=== PATIENT | male | born 2000 | race Caucasian/White ===

== ENCOUNTER 2019-01-24 12:01 | Emergency (ER) | payer MEDICAID, SELFPAY ==
[2019-01-24 12:34] VITALS: BP 133/77; PULSE 85; RESP 16; TEMP 36.8; O2SAT 94
[2019-01-24 12:43] VITALS: RESP 18
[2019-01-24 13:00] LABS: Bilirubin Negative (Negative); Blood Negative (Negative); Clarity Clear (Clear); Glucose Negative (Negative); Ketones Negative (Negative); Leukocyte Esterase Negative (Negative); Nitrite Negative (Negative); Specific Gravity 1.015 (1.005-1.025); Urobilinogen 0.2 EU/dL (Up TO 0.2)
--- NOTE | 2019-01-24 13:05 | DI.RAD_ITS ---
EXAM: XR LUMBAR SPINE COMPLETE INDICATION: R paraspinal L-spine pain after chiropractic manipulation. COMPARISON: No exams were available for comparison TECHNIQUE: 2D digital imaging was performed. FINDINGS: Five views lumbar spine were obtained. There is mild disc space narrowing at L5-S1. Intervertebral disc spaces otherwise appear well maintained. No other abnormality seen with unremarkable appearance of the bones throughout. There is contrast material in the renal collecting systems, ureters and ur inary bladder following contrast administration for CTA. The visualized urinary tract structures appe ar normal. IMPRESSION: L5-S1 disc space loss of height consistent with disc degeneration. No evidence of fracture.
--- NOTE | 2019-01-24 13:05 | DI.CT_ITS ---
EXAM: CT BRAIN AND NECK CTA CLINICAL HISTORY: Neck pain, headache after chiropractor C-spine manip. TECHNIQUE: Axial CT angiography was performed with multislice acquisition and multiplanar and/or 3D reconstructions. CT examination of the neck and brain was performed utilizing CTA protocol with intravenous infusion o f 85 cc of Omnipaque 350. COMPARISON: ABD AND PELVIS WITH CONTRAST from 08/02/2017 FINDINGS: Images obtained through the lung apices are unremarkable. Visualized aortic arch appears intact. Th e common, internal and external carotid arteries are normal bilaterally with no evidence of aneurysm, dissection or stenosis. The vertebral arteries are unremarkable bilaterally as is the basilar arter y with no evidence of aneurysm, dissection or stenosis. Intracranial portions of internal carotid ar teries appear normal as do the anterior middle and posterior cerebral arteries and major branches. N o intracranial mass lesion or enhancing lesion. Orbital and temporal bone structures appear intact. Paranasal sinuses and mastoid air cells are well maintained. No cervical mass or adenopathy seen. No bony fracture identified. IMPRESSION: Negative CT angiogram, neck and head
--- NOTE | 2019-01-24 13:11 | ED.GENADUL_ITS ---
Discharge Plan Disposition Patient Disposition: HOME Condition: Good Discharge Details Chief Complaint: SOB Clinical Impression: Back pain Primary Care Provider: Иван Bosch ED Provider: Harry Humphreys Home Meds and New Rx's Prescriptions: New acetaminophen [Mapap Extra Strength] 500 MG tablet 1,000 mg PO Q6H 5 Days Qty: 60 RF: 0 lidocaine [Lidoderm] 1 PATCH patch 1 patch Topical Q24H Qty: 4 RF: 0 ibuprofen [Motrin IB] 200 MG tablet 600 mg PO Q6H 5 Days Qty: 60 RF: 0 Continued albuterol sulfate [Proventil HFA] 90 mcg/actuation HFA aerosol inhaler 2 puff Inhalation Q4H PRN Qty: 1 RF: 11 omeprazole 20 mg capsule,delayed release(DR/EC) 20 mg PO DAILY Qty: 90 RF: 3 loratadine 10 mg tablet 10 mg PO DAILY PRN (Reason: allergy symptoms) Qty: 90 RF: 5 Discontinued ibuprofen 800 MG tablet 800 mg PO Q8H PRN Qty: 90 RF: 1 Discharge Instructions Instructions: Back Pain (ED) Additional Instructions: You have a strain for your back. At this time the x-rays are negative for any fracture, and the CT scan per our radiologist shows no signs of dissection. Please use Lidoderm patch as directed, take Tylenol and Motrin as needed for pain. If you notice any worsening of your symptoms, or any new symptoms such as vomiting, diarrhea, fever, chills, shortness of breath, chest pain, numbness, numbness or tingling in your groin, bowel or bladder incontinence, weakness, or fainting , please return immediately to the emergency department for reevaluation. Please avoid any lifting greater than 5 to 10 pounds. Use a heating pad as often as possible on your back. Please follow up with your primary care provider as soon as possible for reassessment and reevaluation. As always, it was a pleasure participating in your medical care today. Referrals: Иван Bosch [Primary Care Provider] - Discharge Data Discharge Date/Time-TO BE ENTERED AT DEPARTURE: 01/24/19 15:15 Medical Decision Making This is a pleasant 18-year-old male with no significant past medical history who presents today for evaluation of lower back pain and mild headache. Patient states that he has been doing a lot of heavy lifting at his work secondary to requirements up the arm. This is caused some mild right-sided paraspinal lumbar pain. He did go to see a chiropractor who did some adjustments on his back also his neck. Since then the patient has had mild headache, conjunction with his continued back pain. He has no concerning red flags of saddle anesthesia, bowel or bladder incontinence, syncope. Of pertinence he did have a second-degree relative who just recently also went to the chiropractor and unfortunately in a similar timeframe developed a carotid or vertebral artery dissection. Physical exam today demonstrates mild right-sided paraspinal tenderness and spasm. No carotid or vertebral artery bruits. No concerning physical exam findings suggestive of cauda equina syndrome. No focal neurologic deficits of the cervical spine, no intracranial neurologic focal deficits. Signs and symptoms certainly appear relatively benign, no clinical evidence of meningitis. I feel the patient's headache is likely secondary to mild tension headache. However because of the recent family history and family' s current concern we will get a CTA of the head neck, as well as plain films of the lumbar spine. No clinical evidence of aortic dissection or aneurysm, pulses are equal and symmetric lower extremities bilaterally. 5 PM Laboratory work-up is returned benign, no significant abnormalities are noted, urinalysis is negative for any evidence of infection or hematuria. EKG unremarkable. CT scan of the head neck as well as lumbar spine demonstrates no evidence of acute process, dissection, aneurysm or bleed. After Lidoderm patch Solu-Medrol and NSAID therapy the patient is feeling much better. He states that he feels ready to go home. This time I feel the patient signs and symptoms are clinically consistent with a mild muscular stiff skeletal strain muscle spasms. Recommend continued heating pad, NSAID therapy and Lidoderm patch. Discussed red flags for which to return. I have extensively reviewed the treatment plan and discharge instructions with the patient and their family. I have addressed all patient concerns at this time. The patient and family was made aware of what symptoms to monitor for that would warrant a return to the emergency department. Discussed the plan with the patient and family, they demonstrate verbal understanding and agreement with our assessment and plan at this time. EKG 12: 45 Rate 72, intervals normal, sinus rhythm, no significant ST elevations or depressions, small less than 1 mm J-point elevation in V2, no Q waves, no evidence of STEMI, Brugada, Wellens, or WPW. Or hokum FINDINGS: Images obtained through the lung apices are unremarkable. Visualized aortic arch appears intact. The common, internal and external carotid arteries are normal bilaterally with no evidence of aneurysm, dissection or stenosis. The vertebral arteries are unremarkable bilaterally as is the basilar artery with no evidence of aneurysm, dissection or stenosis. Intracranial portions of internal carotid arteries appear normal as do the anterior middle and posterior cerebral arteries and major branches. No intracranial mass lesion or enhancing lesion. Orbital and temporal bone structures appear intact. Paranasal sinuses and mastoid air cells are well maintained. No cervical mass or adenopathy seen. No bony fracture identified. IMPRESSION: Negative CT angiogram, neck and head FINDINGS: Five views lumbar spine were obtained. There is mild disc space narrowing at L5-S1. Intervertebral disc spaces otherwise appear well maintained. No other abnormality seen with unremarkable appearance of the bones throughout. There is contrast material in the renal collecting systems, ureters and urinary bladder following contrast administration for CTA. The visualized urinary tract structures appear normal. IMPRESSION: L5-S1 disc space loss of height consistent with disc degeneration. No evidence of fracture. Ordered By: Harry Humphreys DO [facility] General Date/Time Provider Initiated Documentation: 01/24/19 12:31 . [facility] Narrative: This is a 18-year-old male who presents today for evaluation of mild headache and back pain. 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 48 hours ago he noticed some mild back spasms on his right lower back. His symptoms are made worse by lifting and working. He denied any associated urinary complaints. He denies any frequency or hematuria. He denies any saddle anesthesia, numbness tingling weakness. He went to see a chiropractor and had an adjustment on his back and his neck. Since then he has had a mild headache, mild neck pain, and continued mild back pain. He denies any additional symptoms of vision changes, syncope, or other complaints. He denies any fever chills or IV or illicit drug use. He denies any trauma. Of pertinence the patient did have a second-degree family member also went to the same chiropractor 2 weeks ago who unfortunately had a Carotid or vertebral artery dissection. Currently the patient is concerned about this. Patient denies any other complaints at this time. No other modifying factors. Related Data Home Medications Medication Instructions Recorded Confirmed albuterol sulfate 90 mcg/actuation 2 puff INHALATION Q4H PRN #1 03/01/18 01/24/19 aerosol inhaler inhaler loratadine 10 mg tablet 10 mg PO DAILY PRN #90 tab 09/27/18 01/24/19 omeprazole 20 mg capsule,delayed 20 mg PO DAILY #90 tab-cap 19 01/24/19 release acetaminophen [Mapap Extra 1,000 mg PO Q6H 5 Days #60 tab 01/24/19 Strength] ibuprofen [Motrin Ib] 600 mg PO Q6H 5 Days #60 tab 01/24/19 lidocaine [Lidoderm] 1 patch TOPICAL Q24H #4 patch 01/24/19 Previous Rx's Medication Instructions Recorded albuterol sulfate 90 mcg/actuation 2 puff INHALATION Q4H PRN #1 03/01/18 aerosol inhaler inhaler loratadine 10 mg tablet 10 mg PO DAILY PRN #90 tab 09/27/18 omeprazole 20 mg capsule,delayed 20 mg PO DAILY #90 tab-cap 09/27/18 release acetaminophen [Mapap Extra 1,000 mg PO Q6H 5 Days #60 tab 01/24/19 Strength] ibuprofen [Motrin Ib] 600 mg PO Q6H 5 Days #60 tab 01/24/19 lidocaine [Lidoderm] 1 patch TOPICAL Q24H #4 patch 01/24/19 Allergies Allergy/AdvReac Type Severity Reaction Status Date / Time cetirizine HCl [From [facility]] Allergy Unverified 01/24/19 12:38 salt and vinegar chips Allergy Intermediate rash/hives Uncoded 01/24/19 12:38 General Stated Complaint: SOB HEATHER: 3 Review of Systems Review of Systems ROS Unobtainable: All systems reviewed & are unremarkable except as noted in HPI and below PFSH Medical History (Updated 03/01/18 @ 09:20 by Иван Bosch) Acne asthma Environmental allergies Learning problem Surgical History Circumcision Family History Mother Essential hypertension Hyperlipidemia Spina bifida occulta Asthma Father Asthma Maternal Grandfather , AGE 56 No problems noted. 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 3.ENT: Atraumatic external nose and ears. Moist MM. Neck: Symmetric, trachea midline, No thyromegaly. No carotid or vertebral artery bruits. Patient demonstrates good movement of cervical neck. There is no nuchal rigidity, no nuchal tenderness. Patient is able to flex the neck without any difficulty or significant pain. Negative Kernig's and Brudzinski sign. 4.CVS: +S1/S2, No murmurs or gallops. Peripheral pulses 2+ and equal in all extremities. Brisk capillary refill in all extremities. 5.RESP: Unlabored respiratory effort. Clear to auscultation bilaterally. No wheezes rales or rhonchi 6.GI: Soft, Nontender/Nondistended, No hepatosplenomegaly. No guarding or rebound. 7.MSK: Normocephalic/Atraumatic, Extremities w/o deformity or ttp No cyanosis or clubbing, Normal movement of all extremities no midline tenderness to palpation over the CTS spine. Minimal right-sided paraspinal tenderness over the lower lumbar vertebra. Mild right-sided paraspinal muscle spasm. Normal ROM in flexion, extension, side bend, and rotation. Patient has +5 out of 5 strength in the lower extremities in dorsiflexion and plantarflexion, knee flexion and extension, hip flexion and extension. There is +2 over 2 dorsalis pedis pulses bilaterally. There is normal sensation to the skin with light touch at the foot, knee, and hip. Normal saddle sensation. Good sensation over the deep sural nerve area bilaterally. Rectal exam demonstrates normal rectal tone and sensation. Reflexes are +2 over 4 in the patellar reflex bilaterally. +5 out of 5 strength in the medial, ulnar, radial nerve distribution bilaterally in the hands as well as intact light touch sensation to these dermatomes on the hands 8.Skin: Warm, Dry. No rashes or lesions. 9.Neuro: pathology laboratory technologist II-XII grossly intact. Sensation grossly intact, no focal neurologic deficits. All 6 cardinal planes of vision are fully intact. No evidence of rotatory or vertical nystagmus. The patient demonstrated a normal [id number], good dexterity. There was no evidence of dysdiadochokinesia. Patient was able to ambulate without difficulty. There was no wide-based gait. Romberg, and [id number] are both normal on testing. Sensation was intact bilaterally as well as muscle strength bilaterally for all extremities. Patient was able to verbalize butter cup with no slurring, or miss pronunciation. 10.Psych: (AAO) x3. Appropriate mood and affect Course Vital Signs Vital signs: Vital Signs Temperature 36.8 C 01/24/19 12:34 Pulse 85 01/24/19 12:34 Respiratory Rate 16 01/24/19 12:34 Blood Pressure 133/77 01/24/19 12:34 Pulse Oximetry 94 L 01/24/19 12:34 Temperature 36.8 C 01/24/19 12:34 Temperature Source Temporal Artery Scan 01/24/19 12:34 Pulse 85 01/24/19 12:34 Respiratory Rate 18 01/24/19 12:43 Respiratory Effort 01/24/19 12:43 Respiratory Depth Normal 01/24/19 12:43 Blood Pressure 133/77 01/24/19 12:34 Blood Pressure Position Sitting 01/24/19 12:34 Pulse Oximetry 94 L 01/24/19 12:34 Oxygen Delivery Method Room Air 01/24/19 12:34 Oxygen Flow Rate 0 01/24/19 12:34 Pain Level 0 01/24/19 12:34 Lab/Test Results Lab/Test Results: Laboratory Tests Range/Units 01/24/19 12:40 Urine Color (Yellow) Yellow Urine Clarity (Clear) Clear Urine pH (5-8) 6.0 Ur Specific [place] (1.005-1.025) 1.015 Urine Protein (Negative) mg/dL Negative Urine Ketones (Negative) mg/dL Negative Urine Blood (Negative) Negative Urine Nitrite (Negative) Negative Urine Bilirubin (Negative) Negative Urine Urobilinogen (Up TO 0.2) EU/dL 0.2 Ur Leukocyte Esterase (Negative) Negative Urine Glucose (Negative) mg/dL Negative
[2019-01-24 13:24] LABS: HGB 17.1 g/dL (13.5-17.5); Mean Corp. HGB Concentration 34.9 g/dL (32.0-36.0); Mean Corpuscular Hemoglobin 29.5 pg (27.0-33.0); Mean Corpuscular Volume 84.6 fL (80-95); Mean Platelet Volume 12.1 fL (8.0-11.0); RBC 5.79 m/cumm (4.50-6.00); RBC Distribution Width 12.7 % (11.8-14.1)
[2019-01-24 13:31] LABS: ALT 38 U/L (16-63); AST 21 U/L (15-37); Albumin 3.9 g/dL (3.4-5.0); Alkaline Phosphatase 84 U/L (46-116); Anion Gap 9.1 mmol/L (3-11); BUN 11 mg/dL (7-18); Bilirubin, Total 0.5 mg/dL (0.2-1.0); CO2 27.9 mmol/L (21.0-32.0); CREATININE 1.03 mg/dL (0.70-1.30); Calcium 8.6 mg/dL (8.5-10.1); Chloride 103 mmol/L (98-107); Glucose 100 mg/dL (70-100); Potassium 3.7 mmol/L (3.5-5.1); Sodium 140 mmol/L (136-145); Total Protein 7.3 g/dL (6.4-8.2)
[2019-01-24 13:36] LABS: Absolute Lymphocyte Count 0.72 k/cumm (1.2-3.4); Absolute Monocyte Count 0.66 k/cumm (0.11-0.7); Absolute Neutrophil Count 4.13 k/cumm (1.2-6.7); Atypical Lymphocytes % 1; Diff Comment Manual Differential; Platelet Count 157 x1000/uL (130-400); RBC Morphology Normal
[2019-01-24 13:37] LABS: PTT Activated 24.8 sec (21.0-31.4); Prothrombin Time 10.4 sec (9.3-11.0)
[2019-01-24] MEDS: Omnipaque 350 MG/ML 100 ML BTL IJ (13:37)
[2019-01-24] MEDS: methylPREDNISolone SUCC 125 MG VIAL IVP (14:03)
[2019-01-24] MEDS: Lidocaine 5% Patch 1 PATCH TP (14:03)
[2019-01-24] MEDS: Acetaminophen 500 MG TAB 1000 MG PO (14:03)
[2019-01-24 14:23] VITALS: BP 122/87; PULSE 70; RESP 16; TEMP 37; O2SAT 96
== END 2019-01-24 15:15 | disposition home or self-care (01) ==
PROVIDERS: Emergency Provider Student in an Organized Health Care Education/Training Program; PCP Family Medicine
DX: S39.012A Strain of muscle, fascia and tendon of lower back, initial encounter (principal); X50.0XXA Overexertion from strenuous movement or load, initial encounter; Y99.0 Civilian activity done for income or pay; M54.2 Cervicalgia; R51 Headache
CPT/HCPCS: 36415; 36416; 70496; 70498; 80053; 82962; 93005; 96374; 99285; 72110; 81003; 85025; 85610; 85730; 93010; J2930; J3490

== ENCOUNTER 2019-01-26 11:55 | Emergency (ER) | payer MEDICAID, SELFPAY ==
[2019-01-26 12:13] VITALS: BP 126/84; PULSE 110; RESP 16; TEMP 36.4; O2SAT 95
--- NOTE | 2019-01-26 12:45 | DI.CT_ITS ---
EXAM: CT LUMBAR SPINE WO CLINICAL HISTORY: Recent injury, pulled back, midtend @L3-4. TECHNIQUE: CT was performed according to the usual protocol without contrast. COMPARISON: No exams were available for comparison FINDINGS: The lumbar vertebra appear normal. The disc spaces are intact. The posterior elements well-maintained . The facet joints are intact. IMPRESSION: No evidence of a fracture or subluxation.
[2019-01-26 12:46] LABS: Abs Immature Grans 0.02 k/cumm (0.0-0.09); Absolute Basophil Count 0.02 k/cumm (0.0-0.2); Absolute Eosinophil Count 0.12 k/cumm (0.0-0.7); Absolute Lymphocyte Count 2.23 k/cumm (1.2-3.4); Absolute Monocyte Count 0.53 k/cumm (0.11-0.7); Absolute Neutrophil Count 4.88 k/cumm (1.2-6.7); Basophils % 0.3; Eosinophils % 1.5; HCT 47.6 % (40.0-50.0); HGB 16.8 g/dL (13.5-17.5); Immature Grans % 0.3; Lymphocytes % 28.6; Mean Corp. HGB Concentration 35.3 g/dL (32.0-36.0); Mean Corpuscular Hemoglobin 29.9 pg (27.0-33.0); Mean Corpuscular Volume 84.8 fL (80-95); Mean Platelet Volume 10.8 fL (8.0-11.0); Monocytes % 6.8; Neutrophils % 62.5; Platelet Count 164 x1000/uL (130-400); RBC 5.61 m/cumm (4.50-6.00); RBC Distribution Width 12.6 % (11.8-14.1)
[2019-01-26] MEDS: ACETAMINOPHEN 1,000 MG/100 ML BTL 400 MG IVPB (12:51)
[2019-01-26] MEDS: diphenhydrAMINE 50 MG/ML VIAL 25 MG IVP (12:52)
[2019-01-26] MEDS: Prochlorperazine 10 MG/2 ML VIAL IVP (12:53)
[2019-01-26] MEDS: Ketorolac 30 MG/ML VIAL IVP (12:53)
[2019-01-26 13:05] LABS: ALT 38 U/L (16-63); AST 16 U/L (15-37); Albumin 3.7 g/dL (3.4-5.0); Alkaline Phosphatase 74 U/L (46-116); Anion Gap 7.9 mmol/L (3-11); BUN 20 mg/dL (7-18); Bilirubin, Total 0.3 mg/dL (0.2-1.0); CO2 29.1 mmol/L (21.0-32.0); CREATININE 1.14 mg/dL (0.70-1.30); Calcium 8.6 mg/dL (8.5-10.1); Chloride 104 mmol/L (98-107); Glucose 99 mg/dL (70-100); Potassium 3.8 mmol/L (3.5-5.1); Sodium 141 mmol/L (136-145)
[2019-01-26 13:18] LABS: ESR 5 mm/hr (0-15)
[2019-01-26 13:52] LABS: C-Reactive Protein 0.06 mg/dL (0.0-0.3)
--- NOTE | 2019-01-26 14:17 | ED.GENADUL_ITS ---
Discharge Plan Disposition Patient Disposition: HOME Condition: Good Discharge Details Chief Complaint: Nk/Back Pain Clinical Impression: Headache, Lumbago Primary Care Provider: Иван Bosch ED Provider: Harry Humphreys Home Meds and New Rx's Prescriptions: No Action albuterol sulfate [Proventil HFA] 90 mcg/actuation HFA aerosol inhaler 2 puff Inhalation Q4H PRN Qty: 1 RF: 11 omeprazole 20 mg capsule,delayed release(DR/EC) 20 mg PO DAILY Qty: 90 RF: 3 loratadine 10 mg tablet 10 mg PO DAILY PRN (Reason: allergy symptoms) Qty: 90 RF: 5 acetaminophen [Mapap Extra Strength] 500 MG tablet 1,000 mg PO Q6H 5 Days Qty: 60 RF: 0 lidocaine [Lidoderm] 1 PATCH patch 1 patch Topical Q24H Qty: 4 RF: 0 ibuprofen [Motrin IB] 200 MG tablet 600 mg PO Q6H 5 Days Qty: 60 RF: 0 Discharge Instructions Instructions: Low Back Strain (ED), General Headache (ED) Additional Instructions: Please continue to use the Tylenol Motrin and Lidoderm patches. Please drink plenty of fluids and get plenty of sleep. If you notice any worsening of your symptoms, or any new symptoms such as vomiting, diarrhea, fever, chills, shortness of breath, chest pain, numbness, weakness, or fainting , please return immediately to the emergency department for reevaluation. Please follow up with your primary care provider as soon as possible for reassessment and reevaluation. As always, it was a pleasure participating in your medical care today. Referrals: Иван Bosch [Primary Care Provider] - Discharge Data Discharge Date/Time-TO BE ENTERED AT DEPARTURE: 01/26/19 14:29 Medical Decision Making This is a pleasant 18-year-old male with a past medical history of mild degenerative disc disease, as well as chronic migraines who presents today for evaluation of mild headache back pain. He was seen and assessed less than 48 hours ago after having adjustments from a chiropractor leading to mild neck pain and headache, as well as some mild back pain that he had from lifting some heavy objects previously. Imaging at that time was negative including CT angios of the head and neck and x-rays of the lumbar spine aside from mild disc degeneration. No clinical evidence of cauda equina syndrome or cord compression at that time. No evidence of meningeal signs at that time. Since then the i nitial headache that he had resolved and then this 1 started roughly 24 hours afterwards. He denies any concerning red flags of fever, vision changes, neck stiffness. He denies any new trauma. He states that the back pain is not entirely improved. Repeat exam demonstrates no clinical evidence of meningitis, no evidence of cord compression. I had a long discussion with the patient regarding lumbar tap, repeat imaging, and risks and benefits of radiation. At this time family would like further imaging to be done, we will get a CT scan of the lumbar spine. Will get basic labs, give migraine cocktail for the headache, as well as ESR and CRP. Currently the patient shows no clinical evidence of an intracranial aneurysm or bleed clinically with no neck stiffness, nuchal rigidity, and with a negative CT angiogram and CT head just 48 hours ago. Additionaly, the patient would like to hold off on lumbar puncture. I did discuss the risks and benefits of this, including missing a life-threatening or permanently disabling etiology and the patient understands. Clinically he shows no signs of Clinical meningitis as it is. Additionally bedside post void residual showed no evidence of urinary retention. CT scan of the lumbar spine negative aside from mild degenerative disc disease, headache resolved, ESR and CRP benign, no clinical evidence of meningitis, feeling much better, headache completely resolved, physical exam normal. Patient is feeling very well and is requesting to be discharged home. Neuro exam normal, no evidence of cord compression, no evidence of neurovascular compromise, discharge home, close follow-up. Diagnosis chronic headache/migraine, as well as musculoskeletal lumbar strain.I have extensively reviewed the treatment plan and discharge instructions with the patient and their family. I have addressed all patient concerns at this time. The patient and family was made aware of what symptoms to monitor for that would warrant a return to the emergency department. Discussed the plan with the patient and family, they demonstrate verbal understanding and agreement with our assessment and plan at this time. EXAM: CT LUMBAR SPINE WO CLINICAL HISTORY: Recent injury, pulled back, midtend @L3-4. TECHNIQUE: CT was performed according to the usual protocol without contrast. COMPARISON: No exams were available for comparison FINDINGS: The lumbar vertebra appear normal. The disc spaces are intact. The posterior elements well-maintained. The facet joints are intact. IMPRESSION: No evidence of a fracture or subluxation HPI General Date/Time Provider Initiated Documentation: 01/26/19 11:56 . HPI Narrative: This is a 18-year-old male with a past medical history of chronic migraines and headaches, who was recently seen and evaluated within the last 48 hours for evaluation of neck and back pain. At that time he had mild back strain after lifting some heavy objects at work, went to the chiropractor who adjusted his back and his neck, after that the patient had neck pain and headache. CT angiogram of the head and neck was negative for acute process dissection or aneurysm. Lumbar x-rays were benign aside for mild disc degeneration. He was given NSAIDs, Lidoderm patch, and discharged home. Patient presents again today for continued mild back pain, no new changes in regards to that, no saddle anesthesia bowel or bladder incontinence, numbness tingling or weakness. However he states that the pain is not much better with the current treatments. Additionally the patient does admit to mild headache as well now. It is in the right temp oral and frontal region. He denies any neck pain or stiffness. He denies any fevers. He states that the initial headache he had when he was first assessed 2 days ago was completely resolved, and then this 1 started about 24 hours ago. It is improved with NSAIDs. The patient denies any headache red flags of worst headache of life, thunderclap headache, neck pain, fever, concerning family history of polycystic kidney disease, Marfan syndrome, Ahsan-Danlos syndrome, abdominal aortic aneurysm, aortic dissection, or intracranial aneurysm. Patient states that headache is identical in nature to the headaches that he usually gets. He has no other complaints at this time. Related Data Home Medications Medication Instructions Recorded Confirmed albuterol sulfate 90 mcg/actuation 2 puff INHALATION Q4H PRN #1 03/01/18 01/26/19 aerosol inhaler inhaler loratadine 10 mg tablet 10 mg PO DAILY PRN #90 tab 09/27/18 01/26/19 omeprazole 20 mg capsule,delayed 20 mg PO DAILY #90 tab-cap 09/27/18 01/26/19 release acetaminophen [Mapap Extra 1,000 mg PO Q6H 5 Days #60 tab 01/24/19 01/26/19 Strength] ibuprofen [Motrin Ib] 600 mg PO Q6H 5 Days #60 tab 01/24/19 01/26/19 lidocaine [Lidoderm] 1 patch TOPICAL Q24H #4 patch 01/24/19 01/26/19 Previous Rx's Medication Instructions Recorded albuterol sulfate 90 mcg/actuation 2 puff INHALATION Q4H PRN #1 03/01/18 aerosol inhaler inhaler loratadine 10 mg tablet 10 mg PO DAILY PRN #90 tab 09/27/18 omeprazole 20 mg capsule,delayed 20 mg PO DAILY #90 tab-cap 09/27/18 release acetaminophen [Mapap Extra 1,000 mg PO Q6H 5 Days #60 tab 01/24/19 Strength] ibuprofen [Motrin Ib] 600 mg PO Q6H 5 Days #60 tab 01/24/19 lidocaine [Lidoderm] 1 patch TOPICAL Q24H #4 patch 01/24/19 Allergies Allergy/AdvReac Type Severity Reaction Status Date / Time cetirizine HCl [From [facility]] Allergy Unverified 01/24/19 12:38 salt and vinegar chips Allergy Intermediate rash/hives Uncoded 01/24/19 12:38 General Stated Complaint: Nk/Back Pain HEATHER: 3 Review of Systems Review of Systems ROS Unobtainable: All systems reviewed & are unremarkable except as noted in HPI and below PFSH Medical History (Updated 03/01/18 @ 09:20 by Иван Bosch) Acne asthma Environmental allergies Learning problem Surgical History Circumcision Family History Mother Essential hypertension Hyperlipidemia Spina bifida occulta Asthma Father Asthma Maternal Grandfather , AGE 56 No problems noted. 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 3.ENT: Atraumatic external nose and ears. Moist MM. Neck: Symmetric, trachea midline, No thyromegaly. Patient demonstrates good movement of cervical neck. There is no nuchal rigidity, no nuchal tenderness. Patient is able to flex the neck without any difficulty or significant pain. Negative Kernig's and Brudzinski sign. 4.CVS: +S1/S2, No murmurs or gallops. Peripheral pulses 2+ and equal in all e xtremities. Brisk capillary refill in all extremities. 5.RESP: Unlabored respiratory effort. Clear to auscultation bilaterally. No wheezes rales or rhonchi 6.GI: Soft, Nontender/Nondistended, No hepatosplenomegaly. No guarding or rebound. 7.MSK: Normocephalic/Atraumatic, Extremities w/o deformity or ttp No cyanosis or clubbing, Normal movement of all extremities. No midline tenderness to palpation over the CTLS spine. Mild right-sided lumbar paraspinal tenderness. Normal ROM in flexion, extension, side bend, and rotation. Patient has +5 out of 5 strength in the lower extremities in dorsiflexion and plantarflexion, knee flexion and extension, hip flexion and extension. There is +2 over 2 dorsalis pedis pulses bilaterally. There is normal sensation to the skin with light touch at the foot, knee, and hip. Normal saddle sensation. Good sensation over the deep sural nerve area bilaterally. Rectal exam deferred. Reflexes are +2 over 4 in the patellar reflex bilaterally. +5 out of 5 strength in the medial, ulnar, radial nerve distribution bilaterally in the hands as well as intact light touch sensation to these dermatomes on the hands 8.Skin: Warm, Dry. No rashes or lesions. 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 Sensation grossly intact, no focal neurologic deficits. All 6 cardinal planes of vision are fully intact. No evidence of rotatory or vertical nystagmus. The patient demonstrated a normal [id number], good dexterity. There was no evidence of dysdiadochokinesia. Patient was able to ambulate without difficulty. There was no wide-based gait. Romberg, and yowj-[id number] are both normal on testing. Sensation was intact bilaterally as well as muscle strength bilaterally for all extremities. Patient was able to verbalize butter cup with no slurring, or miss pronunciation. 10.Psych: (AAO) x3. Appropriate mood and affect Course Vital Signs Vital signs: Vital Signs Temperature 36.4 C L 01/26/19 12:13 Pulse 110 H 01/26/19 12:13 Respiratory Rate 16 01/26/19 12:13 Blood Pressure 126/84 01/26/19 12:13 Pulse Oximetry 95 01/26/19 12:13 Temperature 36.4 C L 01/26/19 12:13 Temperature Source Skin 01/26/19 12:13 Pulse 110 H 01/26/19 12:13 Respiratory Rate 16 01/26/19 12:13 Respiratory Effort Non-Labored 01/26/19 12:29 Blood Pressure 126/84 01/26/19 12:13 Blood Pressure Position Sitting 01/26/19 12:13 Pulse Oximetry 95 01/26/19 12:13 Oxygen Delivery Method Room Air 01/26/19 12:13 Oxygen Flow Rate 0 01/26/19 12:13 Pain Level 5 01/26/19 12:53 Lab/Test Results Lab/Test Results: Laboratory Tests Range/Units 01/26/19 01/26/19 01/26/19 12:40 12:40 12:40 WBC (4.4-10.8) k/cumm 7.80 RBC (4.50-6.00) m/cumm 5.61 Hgb (13.5-17.5) g/dL 16.8 Hct (40.0-50.0) % 47.6 MCV (80-95) fL 84.8 MCH (27.0-33.0) pg 29.9 MCHC (32.0-36.0) g/dL 35.3 RDW (11.8-14.1) % 12.6 Plt Count (130-400) x1000/uL 164 MPV (8.0-11.0) fL 10.8 Immature Gran % 0.3 Neutrophils % 62.5 Lymphocytes % 28.6 Monocytes % 6.8 Eosinophils % 1.5 Basophils % 0.3 Absolute Neutrophils (1.2-6.7) k/cumm 4.88 Absolute Lymphocytes (1.2-3.4) k/cumm 2.23 Absolute Monocytes (0.11-0.7) k/cumm 0.53 Absolute Eosinophils (0.0-0.7) k/cumm 0.12 Absolute Basophils (0.0-0.2) k/cumm 0.02 ESR (0-15) mm/hr 5 Sodium (136-145) mmol/L 141 Potassium (3.5-5.1) mmol/L 3.8 Chloride (98-107) mmol/L 104 Carbon Dioxide (21.0-32.0) mmol/L 29.1 Anion Gap (3-11) mmol/L 7.9 BUN (7-18) mg/dL 20 H D Creatinine (0.70-1.30) mg/dL 1.14 Estimated GFR/1.73 m2 (mL/min/1.73m2) >= 60.00 Glucose (70-100) mg/dL 99 Calcium (8.5-10.1) mg/dL 8.6 Total Bilirubin (0.2-1.0) mg/dL 0.3 AST (15-37) U/L 16 ALT (16-63) U/L 38 Alkaline Phosphatase (46-116) U/L 74 C-Reactive Protein (0.0-0.3) mg/dL 0.06 Total Protein (6.4-8.2) g/dL 7.0 Albumin (3.4-5.0) g/dL 3.7
[2019-01-26 14:22] VITALS: BP 128/70; PULSE 101; RESP 18; TEMP 36.4; O2SAT 95
== END 2019-01-26 14:29 | disposition home or self-care (01) ==
PROVIDERS: Emergency Provider Student in an Organized Health Care Education/Training Program; PCP Family Medicine
DX: R51 Headache (principal); M54.5 Low back pain
CPT/HCPCS: 36415; 80053; 85652; 96365; 96375; 99284; 72131; 85025; 86140; J0131; J0780; J1200; J1885

== ENCOUNTER 2020-06-19 02:51 | Outpatient (CLI) | payer MEDICAID, SELFPAY ==
[2020-06-19 08:35] LABS: Calculated LDL 167 mg/dL (<100); Cholesterol 225 mg/dL (<200); HDL Cholesterol 46 mg/dL (40-60); Triglyceride 64 mg/dL (<150)
[2020-06-19 09:37] LABS: Hemoglobin A1C 5.5 % (<5.7)
== END 2020-06-19 02:52 | disposition home or self-care (01) ==
LOC: LBO 02:51
PROVIDERS: PCP Nurse Practitioner; Visit Provider Nurse Practitioner
DX: E66.09 Other obesity due to excess calories (principal); Z68.38 Body mass index [BMI] 38.0-38.9, adult; Z13.1 Encounter for screening for diabetes mellitus; Z13.6 Encounter for screening for cardiovascular disorders
CPT/HCPCS: 36415; 80061; 83036

== ENCOUNTER 2021-01-25 21:54 | Emergency (ER) | payer MEDICAID, SELFPAY ==
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
[2021-01-25 22:06] VITALS: BP 138/86; PULSE 69; RESP 20; TEMP 36.8; O2SAT 98
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
== END 2021-01-26 00:05 | disposition home or self-care (01) ==
PROVIDERS: Emergency Provider Registered Nurse Emergency; PCP Nurse Practitioner
DX: T23.201A Burn of second degree of right hand, unspecified site, initial encounter (principal); T31.0 Burns involving less than 10% of body surface; T20.00XA Burn of unspecified degree of head, face, and neck, unspecified site, initial encounter; W40.8XXA Explosion of other specified explosive materials, initial encounter
CPT/HCPCS: 99283; 71046

== ENCOUNTER 2021-09-11 18:50 | Outpatient (REF) | payer MEDICAID, SELFPAY | END 2021-09-11 18:51 | disposition home or self-care (01) | LOC: LBN 18:50 | PROVIDERS: PCP Nurse Practitioner; Visit Provider Nurse Practitioner ==

== ENCOUNTER 2021-12-28 22:21 | Emergency (ER) | payer MEDICAID, SELFPAY ==
[2021-12-28 22:27] VITALS: BP 142/72; PULSE 61; RESP 16; TEMP 36.3; O2SAT 99
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
[2021-12-28] MEDS: Clindamycin 300 MG CAP PO (22:49)
--- NOTE | 2022-01-12 08:44 | NUR.NOTE ---
Nursing Note: Mother Cammy Anderson (on [facility]IPPA) called stating that the antibiotic we put him on did not work. His dental infection is still red, inflamed, and painful. PCP is [facility] and was seen there prior to the ED. Per Dr Gómez patient's mother was told that he could return to ED but if at all possible he should see his PCP for ongoing care of this issue. Was given hours for the [facility].
== END 2021-12-28 22:49 | disposition home or self-care (01) ==
PROVIDERS: Emergency Provider Physician Assistant; PCP Nurse Practitioner
DX: K04.7 Periapical abscess without sinus (principal); J45.909 Unspecified asthma, uncomplicated; F17.210 Nicotine dependence, cigarettes, uncomplicated; F17.290 Nicotine dependence, other tobacco product, uncomplicated
CPT/HCPCS: 99283; 99284

== ENCOUNTER 2022-01-19 15:59 | Emergency (ER) | payer MEDICAID, SELFPAY ==
[2022-01-19 16:15] VITALS: BP 139/81; PULSE 74; RESP 16; TEMP 36.1; O2SAT 99
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
== END 2022-01-19 16:46 | disposition home or self-care (01) ==
PROVIDERS: Emergency Provider Nurse Practitioner Family; PCP Nurse Practitioner
DX: K04.7 Periapical abscess without sinus (principal); J45.909 Unspecified asthma, uncomplicated; F17.210 Nicotine dependence, cigarettes, uncomplicated; F17.290 Nicotine dependence, other tobacco product, uncomplicated
CPT/HCPCS: 99283; 99284

== ENCOUNTER 2022-02-06 19:08 | Emergency (ER) | payer MEDICAID, SELFPAY ==
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
[2022-02-06] MEDS: Benzocaine 20% Gel 30 GM JAR MM (19:39)
[2022-02-06] MEDS: Clindamycin 150 MG CAP 450 MG PO (19:39)
== END 2022-02-06 19:39 | disposition home or self-care (01) ==
PROVIDERS: Emergency Provider Registered Nurse Emergency; PCP Nurse Practitioner
DX: K08.89 Other specified disorders of teeth and supporting structures (principal); F17.210 Nicotine dependence, cigarettes, uncomplicated; F17.290 Nicotine dependence, other tobacco product, uncomplicated
CPT/HCPCS: 99283; 99282

== ENCOUNTER 2022-03-04 11:03 | Emergency (ER) | payer MEDICAID, SELFPAY ==
[2022-03-04 11:08] VITALS: BP 157/96; PULSE 67; RESP 18; TEMP 36.6; O2SAT 97
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
[2022-03-04] MEDS: Ketorolac 60 MG/2 ML VIAL IM (11:31)
[2022-03-04] MEDS: Amoxicillin 875/Clav. 125 TAB PO (11:31)
== END 2022-03-04 11:37 | disposition home or self-care (01) ==
LOC: ER 11:38
PROVIDERS: Emergency Provider Nurse Practitioner Family; PCP Nurse Practitioner
DX: K04.7 Periapical abscess without sinus (principal); K02.9 Dental caries, unspecified
CPT/HCPCS: 96372; 99284; J1885

== ENCOUNTER 2022-06-28 14:57 | Emergency (ER) | payer MEDICAID, SELFPAY ==
[2022-06-28 14:59] VITALS: BP 115/72; PULSE 101; RESP 18; TEMP 36.9; O2SAT 97
--- NOTE | 2022-06-28 15:00 | DI.RAD_ITS ---
Exam(s) XR CHEST 2V PA LATERAL EXAM: XR CHEST 2V PA LATERAL CLINICAL HISTORY: cough, congestion TECHNIQUE: 2D digital imaging was performed. COMPARISON: No exams were available for comparison FINDINGS: HEART: Normal size. Aorta: Not dilated. PULMONARY VASCULATURE: Normal. LUNGS: Clear. PLEURAL SPACE: No pleural effusion or pneumothorax. BONE:Unremarkable for age. IMPRESSION: No acute abnormality. DATA REPOSITORY: RADIATION DOSE DELIVERED:
--- NOTE | 2022-06-28 15:00 | RT.EKG_ITS ---
APPROVED REPORT Exam: Resting ECG Reason for Exam: sob Patient Location: E HR:79 bpm ECG Measurements Heart Rate 79 AXIS MI 156 P 46 QRSd 78 QRS 49 QT 353 T 32 QTc 406 Conclusion Sinus rhythm...normal P axis, V-rate 60- 99
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
[2022-06-28 15:29] VITALS: RESP 16
[2022-06-28] MEDS: Ondansetron O.D.T. 4 MG TABEF (15:38)
== END 2022-06-28 16:45 | disposition home or self-care (01) ==
PROVIDERS: Emergency Provider Emergency Medicine; PCP Nurse Practitioner Family
DX: J20.9 Acute bronchitis, unspecified (principal); J45.909 Unspecified asthma, uncomplicated; F17.210 Nicotine dependence, cigarettes, uncomplicated; F17.290 Nicotine dependence, other tobacco product, uncomplicated
CPT/HCPCS: 93005; 99283; 71046; 93010; 99284

== ENCOUNTER 2022-08-11 20:18 | Emergency (ER) | payer MEDICAID, SELFPAY ==
[2022-08-11 20:21] VITALS: BP 169/101; PULSE 66; RESP 18; TEMP 36.7; O2SAT 99
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
[2022-08-11] MEDS: Benzocaine 20% Gel 30 GM JAR MM (20:38)
[2022-08-11] MEDS: Amoxicillin 875/Clav. 125 TAB PO (20:38)
[2022-08-11] MEDS: Ketorolac 15 MG/ML VIAL IM (20:38)
== END 2022-08-11 20:53 | disposition home or self-care (01) ==
PROVIDERS: Emergency Provider Emergency Medicine; PCP Nurse Practitioner Family
DX: K08.89 Other specified disorders of teeth and supporting structures (principal); J45.909 Unspecified asthma, uncomplicated
CPT/HCPCS: 96372; 99284; J1885

== ENCOUNTER 2022-08-12 01:47 | Emergency (ER) | payer MEDICAID, SELFPAY ==
[2022-08-12 01:51] VITALS: BP 167/104; PULSE 50; RESP 14; TEMP 36.7; O2SAT 100
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
[2022-08-12 02:15] VITALS: BP 160/90; PULSE 60; RESP 14; O2SAT 100
== END 2022-08-12 02:43 | disposition home or self-care (01) ==
PROVIDERS: Emergency Provider Emergency Medicine; PCP Nurse Practitioner Family
DX: R68.84 Jaw pain (principal)
CPT/HCPCS: 99282

== ENCOUNTER 2023-07-15 22:50 | Emergency (ER) | payer MEDICAID, SELFPAY ==
[2023-07-15 22:54] VITALS: BP 158/80; PULSE 62; RESP 16; TEMP 36.6; O2SAT 98
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
[2023-07-15] MEDS: Cyclobenzaprine 10 MG TAB PO (23:15)
[2023-07-15] MEDS: Acetaminophen 500 MG TAB 1000 MG PO (23:15)
[2023-07-15] MEDS: Prochlorperazine 10 MG TAB PO (23:16)
[2023-07-15] MEDS: Ketorolac 15 MG/ML VIAL IM (23:16)
[2023-07-16] MEDS: diazePAM 2 MG TAB PO (00:24)
[2023-07-16] MEDS: Lidocaine 5% Patch 1 PATCH TP (00:24)
[2023-07-16 00:25] VITALS: BP 129/71; PULSE 58; RESP 14; O2SAT 96
[2023-07-16] MEDS: Tetracaine 0.5% 4 ML BTL OP (00:25)
[2023-07-16] MEDS: Cyclobenzaprine 10 MG TAB, 3 TABS/BTL PO (01:26)
[2023-07-16 01:36] VITALS: BP 122/65; PULSE 86; RESP 16; O2SAT 97
== END 2023-07-16 01:37 | disposition home or self-care (01) ==
PROVIDERS: Emergency Provider Student in an Organized Health Care Education/Training Program; PCP Nurse Practitioner Family
DX: R51.9 Headache, unspecified (principal); Z86.69 Personal history of other diseases of the nervous system and sense organs
CPT/HCPCS: 99283; J1885

== ENCOUNTER → 2023-10-24 09:27 | Outpatient (CLI) | payer MEDICAID, SELFPAY ==
--- NOTE | 2023-10-24 | DI.US_ITS ---
Exam(s) US HERNIA EXAM: US HERNIA CLINICAL HISTORY: N50.819 Testicular pain, Rule Out impinged hernia right side, significant. TECHNIQUE: Ultrasound was performed using standard protocol. COMPARISON: CT ABD PELVIS WITH CONTRAST from 08/02/2017 FINDINGS: Sonographic assessment utilizing grayscale and color Doppler imaging was performed and targeted to th e area of clinical concern. No hernia is identified. There is no evidence of fluid collection or adenopathy. IMPRESSION: Negative ultrasound of the right inguinal region. DATA REPOSITORY:
--- NOTE | 2023-10-24 11:38 | DI.US_ITS ---
Exam(s) US SCROTUM EXAM: US SCROTUM CLINICAL HISTORY: N50.819 testicular pain. TECHNIQUE: Scrotal ultrasound performed using grayscale, color-flow and spectral Doppler analysis. COMPARISON: No exams were available for comparison FINDINGS: RIGHT TESTICLE: 4.2 x 2.0 x 3.1 cm Echogenicity: Normal. Contour: Smooth. Mass: None seen. Microlithiasis: None. Hydrocele: Small hydrocele measuring 2.2 x 1.0 x 2.3 cm Varicocele: None. Hernia: No peristalsing bowel loop identified. Epididymis: Small bilateral spermatoceles, 6 and 3 millimeters. Scrotum: Normal. LEFT TESTICLE: 4.1 x 2.6 x 2.6 cm Echogenicity: Normal. Contour: Smooth. Mass: None seen. Microlithiasis: None. Hydrocele: Small hydrocele measuring 3.0 x 0.7 x 2.2 cm Varicocele: None. Hernia: No peristalsing bowel loop identified. Epididymis: 6 millimeter spermatocele. Scrotum: Normal. DOPPLER: Color: Symmetric and uniform, no hyperemia. Duplex: Bilateral testicular arterial waveforms visualized. IMPRESSION: Normal appearing bilateral testicles. Small bilateral varicoceles. Small bilateral spermatoceles. DATA REPOSITORY:
== END ==
PROVIDERS: PCP Nurse Practitioner Family; Visit Provider Nurse Practitioner Family
DX: N50.812 Left testicular pain (principal)
CPT/HCPCS: 76857; 76870

== ENCOUNTER → 2023-11-07 03:23 | Outpatient (CLI) | payer MEDICAID, SELFPAY ==
--- NOTE | 2023-11-07 | DI.CT_ITS ---
Exam(s) CT LUMBAR SPINE RECONS EXAM: CT LUMBAR SPINE RECONS CLINICAL HISTORY: groin pain, right. TECHNIQUE: Imaging Protocol: Axial computed tomography images with coronal and sagittal reformatted images were created and reviewed COMPARISON: CT CT ABDOMEN PELVIS W from 11/07/2023 FINDINGS: Bones: There are no fractures, listhesis, nor pars defects. There are no lytic osseous lesions evide nt. INDIVIDUAL LEVELS: T12-L1:Unremarkable L1-2: No disc herniation. Mild central canal stenosis related to short AP dimensions of the pedicles . No significant annular bulging. No facet arthropathy. No asymmetric foraminal stenosis. Facet elsa nts unremarkable. L2-3: No disc herniation nor canal stenosis. Facet joints unremarkable. No Foraminal stenosis L3-4: No disc herniation. Central canal dimensions lower normal. Short AP dimensions the pedicles. . No facet arthropathy. L4-5: Mild symmetrical annular bulging. No discrete focal disc herniation. Central canal dimension s lower normal. No facet arthropathy. No significant foraminal stenosis. L5-S1: Mild disc space narrowing. No disc herniation or central canal stenosis. Mild bilateral fac et arthropathy. No significant foraminal stenosis. The visualized sacroiliac joints and sacrum appear unremarkable. PARASPINAL SOFT TISSUES: Visualized paraspinal tissues appear unremarkable. IMPRESSION: 1. Minimal findings. No evidence of significant disc herniation. No prominent canal stenosis. 2. There short AP dimensions of the pedicles. This results in central canal dimensions lower normal. Also results in short AP dimensions of the exiting neural foramina. However, there does not appear to be acquired foraminal stenosis. 3. Mild degenerative changes in the facet joints at L5-S1 level noted. Other facet joints appear unr emarkable. RADIATION DOSE DELIVERED: Total DLP DATA REPOSITORY: All CT scans at this facility are submitted to the National Radiology Data Registry (NRDR) Dose Index Registry (DIR) with the [employer] (ACR). RADIATION OPTIMIZATION: All CT scans at this facility use at least one of these dose optimization te chniques: automated exposure control; mA and/or kV adjustment per patient size (includes targeted exa ms where dose is matched to clinical indication); or iterative reconstruction.
--- NOTE | 2023-11-07 08:15 | DI.CT_ITS ---
Exam(s) CT ABDOMEN PELVIS W Exam(s) Exam(s) CT ABDOMEN PELVIS W EXAM: CT ABDOMEN PELVIS W CLINICAL HISTORY: groin pain, right,R10.30 TECHNIQUE: Imaging Protocol: Axial computed tomography images with coronal and sagittal reformatted images were created and reviewed. CONTRAST MATERIAL: Intravenous: Omnipaque 350 Contrast volume:100 mL Oral: Yes COMPARISON: CT ABD PELVIS WITH CONTRAST from 08/02/[address] BRAIN NECK CTA from 01/24/2019 FINDINGS: ABDOMEN: Lung Bases: Normal where visualized. Liver: Normal density. No measurable mass. Portal, Superior Mesenteric, and Splenic Veins: Unremarkable. Gallbladder and Biliary Tract: No radiodense calculus or dilation. Pancreas: Normal density, no abnormal calcifications or inflammatory process. Spleen: Normal. Adrenals: No masses seen. Kidneys: Normal size, contour and axis. No radiodense stones or obstructive uropathy. No masses seen. Abdominal Aorta: Abdominal portion non-dilated. Bowel: No obstruction or bowel wall thickening. Appendix is unremarkable. Peritoneal Cavity: No ascites, collection or mesenteric inflammatory response. No free air. Lymph Nodes: Within normal limits. Bones: Within normal limits for the patient's age. Soft Tissues: No evidence of an inguinal mass or hernia. PELVIS: Bladder: Symmetric distention, no gross wall thickening. Reproductive Organs: Unremarkable as visualized. Lymph Nodes: Within normal limits. Bones: Within normal limits for the patient's age. IMPRESSION: 1. No evidence of a right inguinal mass, adenopathy or hernia. 2. No acute abdominal or pelvic process. RADIATION DOSE DELIVERED: 1,174.82mGy.cm Total DLP DATA REPOSITORY: All CT scans at this facility are submitted to the National Radiology Data Registry (NRDR) Dose Index Registry (DIR) with the [employer] (ACR). RADIATION OPTIMIZATION: All CT scans at this facility use at least one of these dose optimization te chniques: automated exposure control; mA and/or kV adjustment per patient size (includes targeted exa ms where dose is matched to clinical indication); or iterative reconstruction. [id number]: Total DLP = 0.00 mGy-cm Ordered By: Keren Cody NP CC: Dictated By: Momo Jasso M.D. 11/07/23 1639 <Electronically signed by Momo Jasso M.D. in OV> [id number] Transcribed By: Momo Jasso 11/07/23 1639
[2023-11-07] MEDS: Barium Sulfate 2% W/V-Creamy Vanilla Smoothie 450 ML BTL PO (14:17)
[2023-11-07] MEDS: Normal Saline - Diluent 50 ML VIAL IJ (16:15)
[2023-11-07] MEDS: Omnipaque 350 MG/ML 100 ML BTL IJ (16:16)
== END ==
PROVIDERS: PCP Nurse Practitioner Family; Visit Provider Nurse Practitioner Family
DX: R10.30 Lower abdominal pain, unspecified (principal)
CPT/HCPCS: 74177; J3490

== ENCOUNTER → 2023-12-07 01:11 | Outpatient (CLI) | payer OTHER, SELFPAY ==
--- NOTE | 2023-12-07 07:15 | DI.MRI_ITS ---
Exam(s) MR LUMBAR SPINE WO EXAM: MR LUMBAR SPINE WO CLINICAL HISTORY: Increased pain, decreased range of motion, lumbar pain radiation down leg. TECHNIQUE: Multiplanar multisequence MRI of the Lumbar spine was performed. COMPARISON: CR XR CHEST 2V PA LATERAL from 06/28/[address] LUMBAR SPINE RECONS from 11/07/2023 FINDINGS: Bones: The last intervertebral disc space is designated the L5/S1 level for the numbering purpose of this ex amination. The vertebral body heights are well maintained. Alignment: Unremarkable. The marrow signal characteristics are unremarkable. Cord: The conus tip ends at the T12 level. It is of normal size and signal intensity. T12-L1: No focal disc herniation is present. No central spinal canal stenosis.No neural foraminal st enosis. L1-2: No focal disc herniation is present. No central spinal canal stenosis.No neural foraminal sten osis. L2-3: No focal disc herniation is present. No central spinal canal stenosis.No neural foraminal dorys nosis. L3-4: No focal disc herniation is present. No central spinal canal stenosis.No neural foraminal dorys nosis. L4-5: No focal disc herniation is present. No central spinal canal stenosis.No neural foraminal sten osis. L5-S1: No focal disc herniation is present. No central spinal canal stenosis.No neural foraminal st enosis. The visualized SI joints and sacrum are unremarkable. Soft tissues: The paraspinal soft tissues are unremarkable. IMPRESSION: Normal MRI of the lumbar spine.. DATA REPOSITORY:
== END ==
PROVIDERS: PCP Nurse Practitioner Family; Visit Provider Nurse Practitioner Family
DX: M54.50 Low back pain, unspecified (principal); M79.606 Pain in leg, unspecified; M25.552 Pain in left hip
CPT/HCPCS: 72148

== ENCOUNTER 2024-05-22 17:01 | Emergency (ER) | payer MEDICAID, SELFPAY ==
--- NOTE | 2024-05-22 17:00 | RT.EKG_ITS ---
APPROVED REPORT Exam: Resting ECG Reason for Exam: chest pain Patient Location: E HR:58 bpm ECG Measurements Heart Rate 58 AXIS AR 178 P 21 QRSd 81 QRS 67 QT 384 T 61 QTc 379 Conclusion Sinus bradycardia 58 normal axis no stemi
[2024-05-22 17:06] VITALS: BP 120/69; PULSE 65; RESP 18; TEMP 36.7; O2SAT 97
--- NOTE | 2024-05-22 17:30 | DI.RAD_ITS ---
Exam(s) XR CHEST 2V PA LATERAL EXAM: XR CHEST 2V PA LATERAL CLINICAL HISTORY: Chest pain TECHNIQUE: 2D digital imaging was performed of the chest. Two images were obtained. PA and lateral views were obtained. COMPARISON: CR XR CHEST 2V PA LATERAL from 06/28/2022 FINDINGS: MEDIASTINUM: Normal. HEART: Normal. PULMONARY VASCULATURE: Normal. LUNGS: Clear. PLEURAL SPACE: No pleural effusion or pneumothorax. BONE:Within normal limits for the patient's age. OTHER FINDINGS:Normal. IMPRESSION: No acute pulmonary findings. DATA REPOSITORY: RADIATION DOSE DELIVERED:
[2024-05-22 17:42] LABS: Abs Immature Grans 0.01 10^3/uL (0.0-0.06); Absolute Basophil Count 0.04 10^3/uL (0.0-0.2); Absolute Eosinophil Count 0.07 10^3/uL (0.0-0.7); Absolute Lymphocyte Count 1.46 10^3/uL (1.2-3.4); Absolute Monocyte Count 0.31 10^3/uL (0.1-0.8); Basophils % 0.7 %; Eosinophils % 1.3 %; HCT 47.9 % (40.0-50.0); Immature Grans % 0.2 %; Lymphocytes % 26.6 %; MCHC 35.5 % (32.0-36.0); MCV 85 fL (80-95); MPV 10.7 fL (8.0-11.0); Monocytes % 5.6 %; Neutrophils % 65.6 %; Platelet Count 190 10^3/uL (130-400); RBC 5.66 10^6/uL (4.36-5.78); RDW 11.9 % (11.8-14.1); RDW-SD 36.2 fL; WBC 5.49 10^3/uL (4.4-10.8)
[2024-05-22] MEDS: Ketorolac 15 MG/ML VIAL 10 MG IVP (17:50)
[2024-05-22 18:02] LABS: Anion Gap 7.2 mmol/L (3-11); BUN 8 mg/dL (7-18); CO2 29.8 mmol/L (21.0-32.0); CREATININE 1.1 mg/dL (0.70-1.30); Chloride 104 mmol/L (98-107); Estimated GFR 94.95 (mL/min/1.73m2); Glucose 103 mg/dL (74-106); Lipase 25 U/L (<78); Potassium 3.3 mmol/L (3.5-5.1); Sodium 141 mmol/L (136-145); Troponin I 8 ng/L (<or=76)
[2024-05-22 18:13] LABS: Calcium 9.2 mg/dL (8.5-10.1)
[2024-05-22] MEDS: Potassium Chloride Liquid 20 MEQ PKT 40 MEQ PO (18:45)
[2024-05-22 18:51] VITALS: PULSE 78; O2SAT 98
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
== END 2024-05-22 18:51 | disposition home or self-care (01) ==
PROVIDERS: Emergency Provider Emergency Medicine; PCP Nurse Practitioner Family
DX: R07.9 Chest pain, unspecified (principal); E78.5 Hyperlipidemia, unspecified; F17.210 Nicotine dependence, cigarettes, uncomplicated; F17.290 Nicotine dependence, other tobacco product, uncomplicated
CPT/HCPCS: 36415; 80048; 83690; 93005; 96374; 99285; 71046; 84484; 85025; 93010; 99284; J1885

== ENCOUNTER 2025-02-04 11:26 | Emergency (ER) | payer MEDICAID, SELFPAY ==
[2025-02-04 11:31] VITALS: BP 132/86; PULSE 71; RESP 18; TEMP 36.4; O2SAT 98
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
[2025-02-04] MEDS: Amoxicillin 875/Clav. 125 TAB PO (12:09)
[2025-02-04] MEDS: Ketorolac 15 MG/ML VIAL IM (12:09)
== END 2025-02-04 12:12 | disposition home or self-care (01) ==
PROVIDERS: Emergency Provider Emergency Medicine; PCP Nurse Practitioner Family
DX: R68.84 Jaw pain (principal); K04.7 Periapical abscess without sinus
CPT/HCPCS: 96372; 99284; 99283; J1885